=== PATIENT | male | born 1975 | race Caucasian/White ===

== ENCOUNTER 2018-02-28 09:15 | Emergency (ER) | payer MEDICAID ==
--- NOTE | 2018-02-28 10:13 | ED Physician Documentation ---
PD HPI MALE - Stated complaint Stated Complaint: MALE - Chief complaint Chief Complaint: Abd Pain - History obtained from History obtained from: Patient - History of Present Illness Timing - onset: How many days ago (4) Timing - duration: Days (4) Timing - details: Gradual onset, Still present Associated symptoms: Testiclar pain, Scrotal swelling Similar symptoms before: Has not had sx before Recently seen: Not recently seen - Additional information Additional information: 42 year old male has developed some swelling in the left scrotum with some overlying erythema and significant tenderness. He did have a boil on the right testicle and this drained spontaneously about 2 days ago and now he has similar boil on the left side which did not drain and appears to have internalized. Review of Systems Constitutional: denies: Fever, Chills Respiratory: denies: Cough GI: denies: Vomiting : reports: Other (There is abdominal pain when the bladder is full similar to what the patient has experienced with a lipoma the patient had removed from the right groin.). denies: Dysuria Skin: denies: Rash, Lesions PD PAST MEDICAL HISTORY - Past Medical History Past Medical History: Yes Cardiovascular: Murmur Neuro: Head injury, Migraines Psych: Anxiety - Past Surgical History Past Surgical History: Yes General: Hiatal hernia repair - Present Medications Home Medications: Ambulatory Orders Medication Instructions Recorded Confirmed Doxycycline Hyclate 100 mg PO BID #20 capsule 02/28/18 oxyCODONE/ACET 5/325 [Percocet 5 1 each PO Q4-6H PRN #8 tablet 02/28/18 mg/325 mg] - Allergies Allergies/Adverse Reactions: Allergies Allergy/AdvReac Type Severity Reaction Status Date / Time aripiprazole [From Abilify] AdvReac Cramps Verified 02/28/18 09:29 lamotrigine [From Lamictal] AdvReac Rash Verified 02/28/18 09:29 - Social History Does the pt smoke?: No Smoking Status: Never smoker Does the pt drink ETOH?: No Does the pt have substance abuse?: No Substance Use and Type: Marijuana - Immunizations Immunizations are current?: Yes - POLST Patient has POLST: No PD ED PE NORMAL - Vitals Vital signs reviewed: Yes (hypertensive ) - General General: Alert and oriented X 3, No acute distress, Well developed/nourished, Other (talkative with pressured speech) - HEENT HEENT: Atraumatic, PERRL, EOMI - Neck Neck: Supple, no meningeal sign - Respiratory Respiratory: No respiratory distress - Male Male : Other (There is swelling in the left scrotum with a tender mass and overlying erythema. There is no fluctuance and the left testicle does not appear tender. 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 The testes appear normal bilaterally with positive vascular flow. The right epididymis appears unremarkable. 2 The left epididymis appears hyperemic question epididymitis. 3 There is scrotal skin thickening mostly on the left there is heterogeneous echogenic hypervascular tissue around the left testicle testicle which is probably inflammatory. 4 There is a small hypoechoic structure in the thickened left scrotal wall which is not clearly a drainable collection at this time. 5 There are small bilateral hydroceles), EMP read indepedently, See rad report PD MEDICAL DECISION MAKING - ED course Complexity details: reviewed results, re-evaluated patient, considered differential, d/w patient ED course: 42-year-old male with swelling to the scrotum has both what appears to be epididymitis and a scrotal wall abscess. The abscess does not appear to be a drainable collection of fluid at this time. He is placed on doxycycline. - Sepsis Event Vital Signs: Vital Signs - 24 hr 02/28/18 02/28/18 09:24 12:08 Temperature 36.7 C Heart Rate 97 80 Respiratory 20 14 Rate Blood Pressure 137/95 H 141/88 H O2 Saturation 97 98 Oxygen O2 Source Room air Departure - Departure Disposition: Home, Self Care Clinical Impression: Epididymitis, Scrotal wall abscess Condition: Stable Instructions: ED Staph Infec Abx Tx Only, ED Epididymitis Follow-Up: Your, doctor [Other] Prescriptions: Doxycycline Hyclate 100 mg PO BID #20 capsule oxyCODONE/ACET 5/325 [Percocet 5 mg/325 mg] 1 each PO Q4-6H PRN #8 tablet PRN Reason: Pain Discharge Date/Time: 02/28/18 12:10
--- NOTE | 2018-02-28 11:38 | Ultrasound Report ---
Procedure Date: 02/28/2018 Accession Number: [id number] / [id number] Procedure: US - Testicle w/Doppler Limited CPT Code: FULL RESULT: EXAM: SCROTAL ULTRASOUND EXAM DATE: 02/28/2018 11:23 AM. CLINICAL HISTORY: Swelling pain mass left scrotum. COMPARISON: None available. TECHNIQUE: Real-time scanning was performed with static images obtained. Both color-flow and Doppler spectral analysis were utilized. FINDINGS: Right: Testis: 4 x 1.6 x 2.4 cm. Normal size and echotexture. No mass, calcification, or abnormal blood flow. Epididymis: 1.6 x 0.8 x 1.3 cm. Normal size and echotexture. No mass or abnormal blood flow. Hydrocele: Small volume. Varicocele: None. Left: Testis: 3.5 x 2 x 2.7 cm. Normal size and echotexture. No mass, calcification, or abnormal blood flow. Epididymis: 3.5 x 0.9 x 1.7 cm. Vascular flow appears increased. Hydrocele: Small volume. Varicocele: None. Other: There is scrotal skin thickening left greater than right. There is a hypoechoic structure in the left scrotal wall measuring 1.1 x 0.6 x 1.1 cm. There is heterogeneous, echogenic hypervascular tissue around the left testicle. IMPRESSION: 1. The testicles appear normal bilaterally with positive vascular flow. The right epididymis appears unremarkable. 2. The left epididymis appears hyperemic, question epididymitis. 3. There is scrotal skin thickening mostly on the left. There is heterogeneous echogenic hypervascular tissue around the left testicle which is probably inflammatory. 4. There is a small hypoechoic structure in the thickened left scrotal wall which is not clearly a drainable collection at this time. 5. There are small bilateral hydroceles. RADIA
[2018-02-28 12:09] VITALS: BP 141/88
== END 2018-02-28 12:10 | disposition home or self-care (01) ==
LOC: ED 09:15
DX: N45.1 Epididymitis (principal); N49.2 Inflammatory disorders of scrotum
CPT/HCPCS: 76870; 93976; 99283

== ENCOUNTER 2018-03-13 08:25 | Outpatient (CLI) | payer MEDICAID ==
[2018-03-13 10:06] LABS: BASOPHILS % (AUTO) 0.5 %; EOSINOPHILS # (AUTO) 0.1 10^3/uL (0.0-0.7); HGB - HEMOGLOBIN 16.7 g/dL (14.0-18.0); LYMPHOCYTES # (AUTO) 1.4 10^3/uL (1.5-3.5); LYMPHOCYTES % (AUTO) 23.6 %; MEAN CORPUSCULAR HGB CONC 34.9 g/dL (32.0-36.0); MEAN CORPUSCULAR VOLUME 94.5 fL (80.0-94.0); MEAN PLATELET VOLUME 7.8 fL (7.4-11.4); MONOCYTES # (AUTO) 0.5 10^3/uL (0.0-1.0); MONOCYTES % (AUTO) 9.1 %; NEUTROPHILS # (AUTO) 3.8 10^3/uL (1.5-6.6); NEUTROPHILS % (AUTO) 65.8 %; PLT - PLATELET COUNT 277 10^3/uL (130-450); RED BLOOD COUNT 5.06 10^6/uL (4.70-6.10); RED CELL DISTRIBUTION WIDTH 12.8 % (12.0-15.0); WHITE BLOOD COUNT 5.8 x10^3/uL (4.8-10.8)
[2018-03-13 10:14] LABS: ALBUMIN 4.6 g/dL (3.2-5.5); ALBUMIN/GLOBULIN RATIO 1.5 (1.0-2.2); BILIRUBIN,TOTAL 1.2 mg/dL (0.2-1.0); CALCIUM 9.1 mg/dL (8.5-10.3); CREATININE 0.9 mg/dL (0.6-1.2); TOTAL PROTEIN 7.7 g/dL (6.7-8.2)
== END 2018-03-13 08:26 | disposition home or self-care (01) ==
LOC: LAB.F 08:25
PROVIDERS: ATTEND Internal Medicine
DX: M79.7 Fibromyalgia (principal)
CPT/HCPCS: 36415; 80050; 85651